=== PATIENT | female | born 1975 | race Caucasian/White ===

== ENCOUNTER 2022-09-12 21:51 | Emergency (ER) | payer OTHER ==
[2022-09-12] MEDS ORDERED: ASPIRIN 81 MG CHEWABLE TABLET ONE (22:39)
[2022-09-12] MEDS ORDERED: HYDROCODONE/CHLORPHEN 5 ML/OSYR ONE (22:40)
[2022-09-12 22:45] LABS: Absolute Lymphocytes (CBC) 1.8 K/uL (0.7-4.9); Hematocrit 33.1 % (36.0-45.0); Lymphocytes % 19.6 % (15.3-44.8); MCV 88.5 fL (80-100); MPV 8.1 fL (7.6-11.3); RBC Red Blood Cell Count 3.74 M/uL (3.86-4.86); SARS-CoV-2 Antigen Rapid Res Negative (Negative)
[2022-09-12 22:55] LABS: ALT/SGPT 34 U/L (13-56); Albumin 3.6 g/dL (3.4-5.0); Alkaline Phosphatase 96 U/L (45-117); BUN Blood Urea Nitrogen 9 mg/dL (7-18); Bicarbonate 25 mEq/L (21-32); Bilirubin Direct 0.1 mg/dL (0-0.2); Bilirubin Indirect, Calculated 0.3 mg/dL (0.2-0.8); Bilirubin Total 0.4 mg/dL (0.2-1.0); Glomerular Filtration Rate 94 ml/min (=/>90); Glucose Level 95 mg/dL (74-106); NT PRO-BNP 11 pg/mL (<125); Sodium Level 135 mEq/L (136-145)
[2022-09-12 22:56] LABS: Magnesium 1.7 mg/dL (1.6-2.4); Potassium 3.8 mEq/L (3.5-5.1); Protime INR 1.06; Troponin High Sensitivity < 3.0 pg/mL (<58.9)
[2022-09-12 22:57] LABS: AST/SGOT 31 U/L (15-37)
--- NOTE | 2022-09-13 00:34 | EDPHYS ---
Physician Documentation [facility] Name: Rosalie Torres Age: 47 yrs Sex: Female : 1975 Arrival Date: 09/12/2022 Time: 21:51 Bed 6 Private MD: ED Physician Chito Song HPI: 09/12 22:42 This 47 yrs old Female presents to ER via Ambulatory with complaints of Breathing snw Difficulty. 22:42 The patient has shortness of breath at rest, with light activity, while talking, and snw the patient has a history of asthma. Onset: The symptoms/episode began/occurred acutely, 3 day(s) ago, and became persistent. The patient's shortness of breath is aggravated by coughing, light activity, talking. Associated signs and symptoms: Pertinent positives: nausea, vomiting. Severity of symptoms: At their worst the symptoms were moderate. It is unknown whether or not the patient has had similar symptoms in the past. The patient has not recently seen a physician. Historical: - Allergies: 22:10 Phenergan; mb9 22:10 Symbicort; mb9 - Home Meds: 22:10 losartan 25 mg oral tablet once [Active]; mb9 - PMHx: 22:10 Hypertensive disorder; mb9 - PSHx: 22:10 section; mb9 - Immunization history:: Adult Immunizations up to date. - Social history:: Smoking status: Patient/guardian denies using tobacco, but has a distant history of tobacco abuse. ROS: 22:41 Eyes: Negative for injury, pain, redness, and discharge, ENT: Negative for injury, snw pain, and discharge, Neck: Negative for injury, pain, and swelling. 22:41 Back: Negative for injury and pain, : Negative for injury, bleeding, discharge, and swelling, MS/Extremity: Negative for injury and deformity, Skin: Negative for injury, rash, and discoloration, Neuro: Negative for headache, weakness, numbness, tingling, and seizure, Psych: Negative for depression, anxiety, suicide ideation, homicidal ideation, and hallucinations. 22:41 Constitutional: Positive for body aches. 22:41 Cardiovascular: Positive for chest pain, orthopnea. 22:41 Respiratory: Positive for cough, dyspnea on exertion, shortness of breath. 22:41 Abdomen/GI: Positive for nausea. Exam: 22:42 Constitutional: This is a well developed, well nourished patient who is awake, alert, snw and in no acute distress. Head/Face: Normocephalic, atraumatic. Eyes: Pupils equal round and reactive to light, extra-ocular motions intact. Lids and lashes normal. Conjunctiva and sclera are non-icteric and not injected. Cornea within normal limits. Periorbital areas with no swelling, redness, or edema. ENT: Nares patent. No nasal discharge, no septal abnormalities noted. Tympanic membranes are normal and external auditory canals are clear. Oropharynx with no redness, swelling, or masses, exudates, or evidence of obstruction, uvula midline. Mucous membranes moist. Neck: Trachea midline, no thyromegaly or masses palpated, and no cervical lymphadenopathy. Supple, full range of motion without nuchal rigidity, or vertebral point tenderness. No Meningismus. Chest/axilla: Normal chest wall appearance and motion. Nontender with no deformity. No lesions are appreciated. Cardiovascular: Regular rate and rhythm with a normal S1 and S2. No gallops, murmurs, or rubs. Normal PMI, no JVD. No pulse deficits. Respiratory: Lungs have equal breath sounds bilaterally, clear to auscultation and percussion. No rales, rhonchi or wheezes noted. No increased work of breathing, no retractions or nasal flaring. Abdomen/GI: Soft, non-tender, with normal bowel sounds. No distension or tympany. No guarding or rebound. No evidence of tenderness throughout. Back: No spinal tenderness. No costovertebral tenderness. Full range of motion. Skin: Warm, dry with normal turgor. Normal color with no rashes, no lesions, and no evidence of cellulitis. MS/ Extremity: Pulses equal, no cyanosis. Neurovascular intact. Full, normal range of motion. Neuro: Awake and alert, GCS 15, oriented to person, place, time, and situation. Cranial nerves II-XII grossly intact. Motor strength 5/5 in all extremities. Sensory grossly intact. Cerebellar exam normal. Normal gait. Psych: Awake, alert, with orientation to person, place and time. Behavior, mood, and affect are within normal limits. Vital Signs: 22:08 BP 143 / 86; Pulse 105; Resp 20; Temp 97.9(O); Pulse Ox 100% on R/A; Weight 102.06 kg; mb9 Height 5 ft. 7 in. ; 23:00 BP 127 / 81; Pulse 92; Resp 16; Pulse Ox 100% on R/A; jb4 09/13 00:34 BP 144 / 83; Pulse 81; Resp 19 S; Pulse Ox 100% on R/A; as6 09/12 22:08 Body Mass Index 35.24 (102.06 kg, 170.18 cm) mb9 MDM: 09/12 22:03 Patient medically screened. leonel 09/13 00:51 Differential diagnosis: Anxiety Reaction Bronchitis Chronic Obstructive Pulmonary snw Disease pneumonia. Antibiotic administration: Not indicated. Data reviewed: vital signs, nurses notes, lab test result(s), EKG, radiologic studies. I considered the following discharge prescriptions or medication management in the emergency department Medications were administered in the Emergency Department. See MAR. Counseling: I had a detailed discussion with the patient and/or guardian regarding: the historical points, exam findings, and any diagnostic results supporting the discharge/admit diagnosis, the presence of at least one elevated blood pressure reading (>120/80) during this emergency department visit, lab results, radiology results, the need for outpatient follow up, for definitive care, to return to the emergency department if symptoms worsen or persist or if there are any questions or concerns that arise at home. Special discussion: I have referred the patient to see his PCP for further evaluation of high blood pressure. Based on the history and exam findings, there is no indication for further emergent testing or inpatient evaluation. I discussed with the patient/guardian the need to see the primary care provider for further evaluation of the symptoms. 09/12 22:16 Order name: Basic Metabolic Panel; Complete Time: 23:05 w 09/12 22:16 Order name: CBC with Diff; Complete Time: 22:47 snw 09/12 22:16 Order name: LFT's; Complete Time: 23:05 w 09/12 22:16 Order name: Magnesium; Complete Time: 23:05 w 09/12 22:16 Order name: NT PRO-BNP; Complete Time: 23:05 w 09/12 22:16 Order name: PT-INR; Complete Time: 23:05 w 09/12 22:16 Order name: Troponin HS; Complete Time: 23:05 snw 09/12 22:16 Order name: Flu; Complete Time: 22:54 snw 09/12 22:16 Order name: SARS RAPID; Complete Time: 22:47 snw 09/12 22:16 Order name: XRAY Chest (1 view) snw 09/12 22:16 Order name: EKG; Complete Time: 22:16 snw 09/12 22:16 Order name: Cardiac monitoring; Complete Time: 22:36 snw 09/12 22:16 Order name: EKG - Nurse/Tech; Complete Time: 22:35 snw 09/12 22:16 Order name: IV Saline Lock; Complete Time: 22:35 snw 09/12 22:16 Order name: Labs collected and sent; Complete Time: 22:35 snw 09/12 22:16 Order name: O2 Per Protocol; Complete Time: 22:35 snw 09/12 22:16 Order name: O2 Sat Monitoring; Complete Time: 22:35 snw Administered Medications: 09/12 22:35 Drug: Aspirin PO Chewable Tablet 324 mg Route: PO; as6 09/13 00:47 Follow up: Response: No adverse reaction as6 09/12 22:35 Drug: Tussionex Pennkinetic ER PO Suspension 2.5 ml Route: PO; 09/13 00:47 Follow up: Response: No adverse reaction as6 Disposition Summary: 09/13/22 00:33 Discharge Ordered Location: Home snw Condition: Stable snw Diagnosis - Acute bronchitis, unspecified snw Followup: snw - With: Emergency Department - When: As needed - Reason: Worsening of condition Followup: snw - With: Private Physician - When: 2 - 3 days - Reason: Recheck today's complaints, Continuance of care, Re-evaluation by your physician Discharge Instructions: - Discharge Summary Sheet snw - Acute Bronchitis, Adult snw - Viral Respiratory Infection snw - Rehydration, Adult snw Forms: - Work release form snw - Medication Reconciliation Form snw - Thank You Letter snw - Antibiotic Education snw - Prescription Opioid Use snw - [email or web address] snw Prescriptions: - Zyrtec 10 mg Oral Tablet - take 1 tablet by ORAL route once daily As needed; 20 tablet; Refills: 0, snw Product Selection Permitted - Tessalon Perles 100 mg Oral Capsule - take 1 capsule by ORAL route every 8 hours As needed; 15 capsule; Refills: 0, snw Product Selection Permitted - Pepcid 20 mg Oral Tablet - take 1 tablet by ORAL route once daily; 20 tablet; Refills: 0, Product snw Selection Permitted Signatures: Dispatcher [employer] Chito Barrios MD MD cha Waters, Shelly, [employer] OPERATOR-C [employer] OPERATOR-Csnw Cody Marx RN RN as6 Ángela Black RN RN mb9
--- NOTE | 2022-09-13 00:34 | ER ---
Nurse's Notes [facility] Name: Rosalie Torres Age: 47 yrs Sex: Female : 1975 Arrival Date: 09/12/2022 Time: 21:51 Bed 6 Private MD: Diagnosis: Acute bronchitis, unspecified Presentation: 09/12 22:08 Chief complaint: Patient states: "I've been SOB for 3 days now and my doctors office is the [facility] closed so I came here. I can't sleep, reclining makes it worse, and just can't function like this. I have chest pressure and it feels like an elephant is sitting on my chest. I start coughing and hacking and makes me nauseous.". Coronavirus screen: Vaccine status: Patient reports receiving the 2nd dose of the covid vaccine. Ebola Screen: No symptoms or risks identified at this time. Initial Sepsis Screen: Does the patient meet any 2 criteria? HR > 90 bpm. Does the patient have a suspected source of infection? No. Patient's initial sepsis screen is negative. Risk Assessment: Do you want to hurt yourself or someone else? Patient reports no desire to harm self or others. Onset of symptoms was 2022. 22:08 Method Of Arrival: Ambulatory 9 22:08 Acuity: QUIANA 3 mb9 Triage Assessment: 22:11 General: Appears uncomfortable, Behavior is cooperative. Pain: Complains of pain in mb9 chest Quality of pain is described as pressure. Neuro: Kennedy Agitation-Sedation Scale (RASS): 0 - Alert and Calm Level of Consciousness is awake, alert, obeys commands, Oriented to person, place, time, situation, Appropriate for age. Cardiovascular: Reports shortness of breath. Respiratory: Reports shortness of breath cough that is Airway is patent Respiratory effort is even, unlabored, Respiratory pattern is regular, symmetrical. Derm: Skin is pink, warm \\T\\ dry. Musculoskeletal: Range of motion: intact in all extremities. Historical: - Allergies: 22:10 Phenergan; mb9 22:10 Symbicort; mb9 - Home Meds: 22:10 losartan 25 mg oral tablet once [Active]; mb9 - PMHx: 22:10 Hypertensive disorder; mb9 - PSHx: 22:10 section; mb9 - Immunization history:: Adult Immunizations up to date. - Social history:: Smoking status: Patient/guardian denies using tobacco, but has a distant history of tobacco abuse. Screenin/04 00:35 [facility] ED Fall Risk Assessment (Adult) Score/Fall Risk Level 0 - 2 = Low Risk. Abuse as6 screen: Denies threats or abuse. Denies injuries from another. Nutritional screening: No deficits noted. Tuberculosis screening: No symptoms or risk factors identified. Assessment: 09/12 22:15 General: Appears in no apparent distress. comfortable, Behavior is calm, cooperative. jb4 Pain: Complains of pain in chest Pain does not radiate. Pain currently is 6 out of 10 on a pain scale. Quality of pain is described as pressure. Neuro: Level of Consciousness is awake, alert, obeys commands, Oriented to person, place, time, situation. Cardiovascular: Patient's skin is warm and dry. Respiratory: Airway is patent Respiratory effort is even, unlabored, Respiratory pattern is regular, symmetrical, Breath sounds are clear bilaterally. GI: No signs and/or symptoms were reported involving the gastrointestinal system. : No signs and/or symptoms were reported regarding the genitourinary system. EENT: No signs and/or symptoms were reported regarding the EENT system. Derm: Skin is intact, Skin is pink, warm \\T\\ dry. Musculoskeletal: Circulation, motion, and sensation intact. Range of motion: intact in all extremities. 23:18 Reassessment: Patient appears in no apparent distress at this time. Patient and/or jb4 family updated on plan of care and expected duration. Pain level reassessed. Patient is alert, oriented x 3, equal unlabored respirations, skin warm/dry/pink. Vital Signs: 22:08 BP 143 / 86; Pulse 105; Resp 20; Temp 97.9(O); Pulse Ox 100% on R/A; Weight 102.06 kg; mb9 Height 5 ft. 7 in. ; 23:00 BP 127 / 81; Pulse 92; Resp 16; Pulse Ox 100% on R/A; jb4 09/13 00:34 BP 144 / 83; Pulse 81; Resp 19 S; Pulse Ox 100% on R/A; as6 09/12 22:08 Body Mass Index 35.24 (102.06 kg, 170.18 cm) mb9 ED Course: 09/12 21:55 Patient arrived in ED. ag3 21:57 [facility] Castell[facility]NP-C [facility] snw 21:57 Chito Song MD is Attending Physician. snw 22:06 Osman Lubin, RN is Primary Nurse. jb4 22:08 Arm band placed on. mb9 22:10 Triage completed. mb9 22:36 SARS RAPID Sent. bc6 22:36 Flu Sent. bc6 22:36 Basic Metabolic Panel Sent. bc6 22:36 CBC with Diff Sent. bc6 22:36 LFT's Sent. bc6 22:36 Magnesium Sent. bc6 22:36 NT PRO-BNP Sent. bc6 22:36 PT-INR Sent. bc6 22:36 Troponin HS Sent. bc6 22:37 Inserted saline lock: 20 gauge in right antecubital area, using aseptic technique. bc6 22:59 XRAY Chest (1 view) In Process Unspecified. EDMS 09/13 00:35 Bed in low position. Call light in reach. Side rails up X 1. as6 00:35 No provider procedures requiring assistance completed. as6 00:52 IV discontinued, intact, bleeding controlled, No redness/swelling at site. Pressure as6 dressing applied. Administered Medications: 09/12 22:35 Drug: Aspirin PO Chewable Tablet 324 mg Route: PO; as6 07 00:47 Follow up: Response: No adverse reaction as6 09/12 22:35 Drug: Tussionex Pennkinetic ER PO Suspension 2.5 ml Route: PO; as6 09/13 00:47 Follow up: Response: No adverse reaction as6 Medication: 00:35 VIS not applicable for this client. as6 Outcome: 00:33 Discharge ordered by . snw 00:35 Discharged to home ambulatory. as6 00:35 Condition: stable 00:52 Discharge instructions given to patient, Instructed on discharge instructions, follow as6 up and referral plans. medication usage, Demonstrated understanding of instructions, follow-up care, medications, Prescriptions given X 3. 00:52 Patient left the ED. as6 Signatures: Dispatcher [employer] EDLA Annia Castellon FNP-C [employer]-Csnw Osman Lubin, RN RN jb4 Shira Linton ag3 Cody Marx RN RN as6 Ángela Black RN RN mb9 Shanda Buchanan bc6
[2022-09-13 01:20] VITALS: TEMP 97.9; O2SAT 100
[2022-09-13 01:22] VITALS: BP 144/83
--- NOTE | 2022-09-13 19:50 | RAD REPORT ---
EXAM DESCRIPTION: RAD - Chest Single View - 09/12/2022 10:57 pm CLINICAL HISTORY: 47 years Female DYSPNEA TECHNIQUE: One view of the chest. COMPARISON: No prior exams provided for comparison. FINDINGS: The lungs are clear without focal consolidation, effusion, or pneumothorax. The cardiomedi astinal silhouette and central pulmonary vasculature are normal. No acute osseous abnormalities. IMPRESSION: No acute cardiopulmonary abnormalities. Electronically signed by: Molly Golden MD 09/12/2022 11:30 PM CDT Due to temporary technical issues with the PACS/Fluency reporting system, reports are being signed by the in house radiologists without review as a courtesy to insure prompt reporting. The interpreting radiologist is fully responsible for the content of the report.
--- NOTE | 2022-09-14 12:33 | EKG ---
Test Date: 2022-09-12 Test Time: 22:33:28 Training Generalist: MICHELLE MEASUREMENT RESULTS: Intervals: Rate: 83 VA: 142 QRSD: 94 QT: 396 QTc: 465 [place]: P: 86 VA: 142 QRS: 96 T: 61 INTERPRETIVE STATEMENTS: Normal sinus rhythm Normal ECG No previous ECG available for comparison Electronically Signed On 09-14-22 12:32:25 CDT by Reddy Foster
== END 2022-09-13 00:52 | disposition home or self-care (01) ==
LOC: ER 21:51
DX: J20.9 Acute bronchitis, unspecified (principal); Z20.822 Contact with and (suspected) exposure to COVID-19; I10 Essential (primary) hypertension; Z88.8 Allergy status to other drugs, medicaments and biological substances
CPT/HCPCS: 36415; 71045; 80048; 80076; 83735; 83880; 84484; 85025; 85610; 87804; 87811; 93005; 99284